=== PATIENT | female | born 1985 | race Caucasian/White ===

== ENCOUNTER 2016-10-21 14:48 | Outpatient (CLI) | payer BC ==
[~2016-10-21] VITALS: Ht 177.8 cm; Wt 123.8 kg
[2016-10-21 15:05] VITALS: BP 148/81
[2016-10-21] MEDS ORDERED: PREN1TAB86 PO (15:27)
[2016-10-21] MEDS ORDERED: CALC-140 PO (15:27)
[2016-10-21] MEDS ORDERED: LABE200T3 PO (15:27)
[2016-10-21] MEDS ORDERED: GLYB2.5T4 PO (15:27)
[2016-10-21 15:30] VITALS: BP 133/74
[2016-10-21 15:30] LABS: BILIRUBIN,URINE NEGATIVE (NEGATIVE); KETONES,URINE NEGATIVE (NEGATIVE); LEUKOCYTE ESTERASE ,URINE NEGATIVE (NEGATIVE); NITRITE,URINE NEGATIVE (NEGATIVE); PH,URINE 6 (5-9); PROTEIN,URINE NEGATIVE (NEGATIVE); UROBILINOGEN,URINE NORMAL (NORMAL)
[2016-10-21 15:45] VITALS: BP 133/74
[2016-10-21 16:00] LABS: BASOPHILS % (AUTO) 0 % (0-10); EOSINOPHILS # (AUTO) 0.1 10^3/uL (0.0-0.3); EOSINOPHILS % (AUTO) 1 % (0-10); LYMPHOCYTES # (AUTO) 1.4 X 10^3 (1.0-4.0); LYMPHOCYTES % (AUTO) 13 % (12-44); MEAN CORPUSCULAR HEMOGLOBIN 27 PG (25-34); MEAN CORPUSCULAR HGB CONC 33 G/DL (32-36); MEAN CORPUSCULAR VOLUME 82 FL (80-99); MEAN PLATELET VOLUME 9.8 FL (7.4-10.4); MONOCYTES # (AUTO) 0.8 X 10^3 (0.0-1.0); MONOCYTES % (AUTO) 8 % (0-12); NEUTROPHILS # (AUTO) 8.2 X 10^3 (1.8-7.8); NEUTROPHILS % (AUTO) 78 % (42-75); PLATELET COUNT 269 10^3/uL (130-400); RED BLOOD COUNT 4.35 10^6/uL (4.35-5.85); RED CELL DISTRIBUTION WIDTH 13.3 % (10.0-14.5); WHITE BLOOD COUNT 10.4 10^3/uL (4.3-11.0)
[2016-10-21 16:05] VITALS: BP 132/69
[2016-10-21 16:17] LABS: ALANINE AMINOTRANSFERASE 14 U/L (0-55); ALBUMIN 3.4 G/DL (3.2-4.5); ANION GAP 8 MMOL/L (5-14); ASPARTATE AMINO TRANSFERASE 14 U/L (5-34); BILIRUBIN,TOTAL 0.3 MG/DL (0.1-1.0); BLOOD UREA NITROGEN 6 MG/DL (7-18); BUN/CREATININE RATIO 11; CALCIUM 8.8 MG/DL (8.5-10.1); CARBON DIOXIDE 22 MMOL/L (21-32); CHLORIDE 107 MMOL/L (98-107); CREATININE SERUM 0.56 MG/DL (0.60-1.30); GFR ESTIMATED > 60; GLUCOSE 101 MG/DL (70-105); LACTATE DEHYDROGENASE 182 U/L (125-220); POTASSIUM 3.8 MMOL/L (3.6-5.0); SODIUM 137 MMOL/L (135-145); TOTAL PROTEIN 6.1 G/DL (6.4-8.2); URIC ACID 3.6 MG/DL (2.6-7.2)
[2016-10-21 16:29] LABS: SQUAMOUS EPITHELIAL CELL,UR 25-50 /HPF; WBC,URINE 0-2 /HPF
--- NOTE | 2016-10-22 10:15 | Physician Query-Final Dx ---
PETTY GUILLERMO 10/22/16 1015: Clinic Account Progress/Dx Physician Query: Please give diagnosis Date of Service Oct 21, 2016 at 14:48 MILAGROS MUELLER DO 10/25/16 0931: Clinic Account Progress/Dx DIAGNOSIS: Diagnosis abnormal vision third trimester chronic hypertension PETTY GUILLERMO Oct 22, 2016 10:15 MILAGROS MUELLER DO Oct 25, 2016 09:31
[2016-12-02] MEDS ORDERED: FERR-74 PO (17:21)
[2016-12-02] MEDS ORDERED: ACET1TAB43 PO (17:21)
[2016-12-02] MEDS ORDERED: DOCU100C37 PO (17:21)
[2016-12-02] MEDS ORDERED: IBUP-1773 PO (17:21)
== END 2016-10-21 16:45 | disposition home or self-care (01) ==
LOC: WSo 14:48 → LDRP 14:49 → WSo 16:45
PROVIDERS: ATTEND Obstetrics & Gynecology
DX: O99.89 Other specified diseases and conditions complicating pregnancy, childbirth and the puerperium (principal); H53.9 Unspecified visual disturbance; O10.913 Unspecified pre-existing hypertension complicating pregnancy, third trimester; Z3A.32 32 weeks gestation of pregnancy
CPT/HCPCS: 36415; 80053; 81000; 83615; 84550; 85025; 87088; 99213

== ENCOUNTER 2016-11-30 20:00 | Inpatient (IN) | payer BC ==
[~2016-11-30] VITALS: Ht 177.8 cm; Wt 124.3 kg
[2016-11-30] VITALS (13 sets, daily range): BP systolic 122–137; BP diastolic 63–80
[~2016-11-30 20:00] MED LIST: CALC-140 PO; GLYB2.5T4 PO; LABE200T3 PO; PREN1TAB86 PO
--- OUTSIDE RECORDS SUMMARY | 2016-11-30 20:09 | XMS REPORT | Continuity of Care Document ---
Author Author [facility] Organization [facility] Address Unknown Phone Unavailable Allergies Active Description Code Type Severity Reaction Onset Reported/Identified Relationship to Patient Clinical Status Yes No Known Drug Allergies [id number] Drug Allergy Unknown N/ A 10/21/2016 Medications Problems Date Dx Coded Attending Type Code Diagnosis Diagnosed By 10/03/2015 JERO DEMPSEY APRN Ot I10 10/21/2016 MUELLER DO MILAGROS C Ot H53.9 UNSPECIFIED VISUAL DISTURBANCE 10/21/2016 MUELLER DO, MILAGROS C Ot O10.913 UNSP PRE-EXISTING HTN COMP , 10/21/2016 MUELLER DO MILAGROS C Ot O99.89 OTH DISEASES AND CONDITIONS COMPL PREG/C 10/21/2016 MUELLER DO, MILAGROS C Ot Z3A.32 32 WEEKS GESTATION OF 10/27/2016 MUELLER DO MILAGROS C Ot H53.9 UNSPECIFIED VISUAL DISTURBANCE 10/27/2016 MUELLER DO, MILAGROS C Ot O10.913 UNSP PRE-EXISTING HTN COMP , 10/27/2016 MUELLER DO, MILAGROS C Ot O99.89 OTH DISEASES AND CONDITIONS COMPL PREG/C 10/27/2016 MUELLER DO, MILAGROS C Ot Z3A.32 32 WEEKS GESTATION OF Procedures Results Test Result Range Complete urinalysis with reflex to culture - 10/21/16 15:20 Urine color determination YELLOW NRG Urine clarity determination CLEAR NRG Urine pH measurement by test strip 6 5- 9 Specific gravity of urine by test strip 1.015 1.016-1.022 Urine protein assay by test strip, semi-quantitative NEGATIVE NEGATIVE Urine glucose detection by automated test strip NEGATIVE NEGATIVE Erythrocytes detection in urine sediment by light microscopy NEGATIVE NEGATIVE Urine ketones detection by automated test strip NEGATIVE NEGATIVE Urine nitrite detection by test strip NEGATIVE NEGATIVE Urine total bilirubin detection by test strip NEGATIVE NEGATIVE Urine urobilinogen measurement by automated test strip (mass/volume) NORMAL NORMAL Urine leukocyte esterase detection by dipstick NEGATIVE NEGATIVE Automated urine sediment erythrocyte count by microscopy (number/high power field) NONE NRG Automated urine sediment leukocyte count by microscopy (number/high power field ) [HPF] NRG Bacteria detection in urine sediment by light microscopy MODERATE NRG Squamous epithelial cells detection in urine sediment by light microscopy 25-50 NRG Crystals detection in urine sediment by light microscopy NONE NRG Casts detection in urine sediment by light microscopy NONE NRG Mucus detection in urine sediment by light microscopy NEGATIVE NRG Complete urinalysis with reflex to culture NO NRG Bacterial urine culture - 10/21/16 15:20 URINE CULTURE RESULTS <10,000/ML NRG Complete blood count (CBC) with automated white blood cell (WBC) differential - 10/21/16 15:51 Blood leukocytes automated count (number/volume) 10.4 10*3/ uL 4.3-11.0 Blood erythrocytes automated count (number/volume) 4.35 10*6 /uL 4.35-5.85 Venous blood hemoglobin measurement (mass/volume) 11.8 g/dL 11.5-16.0 Blood hematocrit (volume fraction) 36 % 35-52 Automated erythrocyte mean corpuscular volume 82 [foz_us] 80-99 Automated erythrocyte mean corpuscular hemoglobin (mass per erythrocyte) 27 pg 25-34 Automated erythrocyte mean corpuscular hemoglobin concentration measurement ( mass/volume) 33 g/dL 32-36 Automated erythrocyte distribution width ratio 13.3 % 10.0-14.5 Automated blood platelet count (count/volume) 269 10*3/uL 130-400 Automated blood platelet mean volume measurement 9.8 [foz_us ] 7.4-10.4 Automated blood neutrophils/100 leukocytes 78 % 42-75 Automated blood lymphocytes/100 leukocytes 13 % 12-44 Blood monocytes/100 leukocytes 8 % 0-12 Automated blood eosinophils/100 leukocytes 1 % 0-10 Automated blood basophils/100 leukocytes 0 % 0-10 Blood neutrophils automated count (number/volume) 8.2 10*3 1.8-7.8 Blood lymphocytes automated count (number/volume) 1.4 10*3 1.0-4.0 Blood monocytes automated count (number/volume) 0.8 10*3 0.0-1.0 Automated eosinophil count 0.1 10*3/uL 0.0-0.3 Automated blood basophil count (count/volume) 0.0 10*3/uL 0.0-0.1 Comprehensive metabolic panel - 10/21/16 15:51 Serum or plasma sodium measurement (moles/volume) 137 mmol/ L 135-145 Serum or plasma potassium measurement (moles/volume) 3.8 mmol/L 3.6-5.0 Serum or plasma chloride measurement (moles/volume) 107 mmol /L 98-107 Carbon dioxide 22 mmol/L 21-32 Serum or plasma anion gap determination (moles/volume) 8 mmol/L 5-14 Serum or plasma urea nitrogen measurement (mass/volume) 6 mg /dL 7-18 Serum or plasma creatinine measurement (mass/volume) 0.56 mg /dL 0.60-1.30 Serum or plasma urea nitrogen/creatinine mass ratio 11 NRG Serum or plasma creatinine measurement with calculation of estimated glomerular filtration rate > NRG Serum or plasma glucose measurement (mass/volume) 101 mg/dL 70-105 Serum or plasma calcium measurement (mass/volume) 8.8 mg/dL 8.5-10.1 Serum or plasma total bilirubin measurement (mass/volume) 0.3 mg/dL 0.1-1.0 Serum or plasma alkaline phosphatase measurement (enzymatic activity/volume) 103 U/L 40-136 Serum or plasma aspartate aminotransferase measurement (enzymatic activity/ volume) 14 U/L 5-34 Serum or plasma alanine aminotransferase measurement (enzymatic activity/volume ) 14 U/L 0-55 Serum or plasma protein measurement (mass/volume) 6.1 g/dL 6.4-8.2 Serum or plasma albumin measurement (mass/volume) 3.4 g/dL 3.2-4.5 Serum or plasma uric acid measurement (mass/volume) - 10/21/16 15:51 Serum or plasma uric acid measurement (mass/volume) 3.6 mg/ dL 2.6-7.2 Lactate dehydrogenase 1 [enzymatic activity/volume] in serum or plasma - 15:51 Lactate dehydrogenase 1 [enzymatic activity/volume] in serum or plasma 182 U/L 125-220 Encounters ACCT No. Visit Date/Time Discharge Status Pt. Type Provider Facility Loc./Unit Complaint [id number] 10/21/2016 14:48:00 2016 16:45:00 DIS Outpatient MILAGROS MUELLER DO [facility]So BLURRY VISION [id number] 09/18/2015 11:01:00 ACT Outpatient JERO DEMPSEY APRN [facility] CARD
[2016-11-30] MEDS ORDERED: LACTATED RINGERS 1,000 ML IV ONE (21:00)
[2016-11-30] MEDS ORDERED: diphenhydrAMINE 50 MG/ML INJ (BENADRYL) IV PRN (21:00)
[2016-11-30] MEDS ORDERED: MINERAL OIL CONCENTRATE 99.9% 15 ML UDC TOP PRN (21:15)
[2016-11-30] MEDS: MISOPROSTOL 100 MCG (CYTOTEC) TAB PV SCH (21:22)
[2016-11-30 21:25] LABS: BASOPHILS % (AUTO) 0 % (0-10); EOSINOPHILS # (AUTO) 0.1 10^3/uL (0.0-0.3); EOSINOPHILS % (AUTO) 1 % (0-10); LYMPHOCYTES # (AUTO) 1.4 X 10^3 (1.0-4.0); LYMPHOCYTES % (AUTO) 13 % (12-44); MEAN CORPUSCULAR HEMOGLOBIN 27 PG (25-34); MEAN CORPUSCULAR HGB CONC 33 G/DL (32-36); MEAN CORPUSCULAR VOLUME 80 FL (80-99); MEAN PLATELET VOLUME 10.4 FL (7.4-10.4); MONOCYTES # (AUTO) 1.2 X 10^3 (0.0-1.0); MONOCYTES % (AUTO) 11 % (0-12); NEUTROPHILS # (AUTO) 8.1 X 10^3 (1.8-7.8); NEUTROPHILS % (AUTO) 75 % (42-75); PLATELET COUNT 275 10^3/uL (130-400); RED BLOOD COUNT 4.26 10^6/uL (4.35-5.85); RED CELL DISTRIBUTION WIDTH 14.5 % (10.0-14.5); WHITE BLOOD COUNT 10.8 10^3/uL (4.3-11.0)
[2016-11-30] MEDS ORDERED: MAGN400T39 PO (21:34)
[2016-11-30] MEDS: CATHETER FLUSH 10 ML SYR IV SCH (22:00)
[2016-11-30 23:05] LABS: BILIRUBIN,URINE NEGATIVE (NEGATIVE); KETONES,URINE NEGATIVE (NEGATIVE); LEUKOCYTE ESTERASE ,URINE NEGATIVE (NEGATIVE); NITRITE,URINE NEGATIVE (NEGATIVE); PH,URINE 6 (5-9); PROTEIN,URINE NEGATIVE (NEGATIVE); UROBILINOGEN,URINE NORMAL (NORMAL)
[2016-11-30 23:28] LABS: WBC,URINE 0-2 /HPF
[2016-12-01] VITALS (85 sets, daily range): BP systolic 90–178; BP diastolic 50–95
[2016-12-01] MEDS: MISOPROSTOL 100 MCG (CYTOTEC) TAB PV SCH ×2 (01:07→05:11)
[2016-12-01] MEDS: CATHETER FLUSH 10 ML SYR IV SCH (05:44)
[2016-12-01] MEDS ORDERED: OXYTOCIN/NORMAL SALINE 500 ML IV SCH ×2 (08:53→22:07)
--- NOTE | 2016-12-01 10:23 | History & Physical-OB ---
OB - Chief Complaint & HPI Date Date of Admission: Date of Admission: Nov 30, 2016 at 20:05 Chief Complaint/History OB-Reason for Admission/Chief: Induction of Labor Hx : 1 Hx Para: 0 Expected Date of Delivery: Dec 14, 2016 Gestational Age in Weeks: 38 Indication for induction: medical complication Other reason for admission: 31 y/o G1 @ 38w1d by L=7 here for IOL c/b: CHTN - on labetalol 100mg with breakfast, 100 mg with lunch, 200 mg QHS Obesity - BMI 39, normal early GDM screening, abnormal 24-28 wk testing with GDMA2 on glyburide 2.5mg QHS H/o LEEP, normal early CLM Anxiety Fetus active, no LOF VB CTX on admission Diarrhea has ceased, still taking magnesium for headaches. Cdiff negative. EFW last week 3600g Admission Nurse Assessment Rev: Yes History of Labs A+ Antibody neg RI Hep B neg HIV neg RPR NR GC/CT neg/neg GBS Neg Allergies and Home Medications Allergies Coded Allergies: No Known Drug Allergies (Unverified , 11/30/16) Home Medications Calcium Carbonate/Vitamin D3 1 Each Tablet 1 TAB PO DAILY (Reported) Glyburide 2.5 Mg Tablet 2.5 MG PO HS (Reported) Labetalol HCl 200 Mg Tablet 200 MG PO ACHS (Reported) 100mg in AM 100mg in the Afternoon 200mg HS Magnesium Oxide 400 Mg Tablet 400 MG PO BID (Reported) Vit W-Ca,Fe,FA(<1 mg) 1 Each Tablet 1 TAB PO DAILY (Reported) OB - History Hx of Present Care: Yes Ultrasounds: Abnormal US findings (LGA (3600g at 37 wga)) Obstetrical Complications: Gestational Diabetes Medical Complications: Other Information Induced Hypertension: No Maternal Gestational Diabetes: Yes Hemorrhage: No Obstetrical History Hx : 1 Hx Para: 0 Delivery History Adverse Rxn to Tranfusion: No Patient Past Medical History see above Social History/Family History HIV/AIDS: No Recent Infectious Disease Expo: No Sexually Transmitted Disease: Yes (HPV) Alcohol Use: Denies Use Recreational Drug Use: No Immunizations Tetanus Booster (TDap): Less than 5yrs (09/24/16) Date of Influenza Vaccine: Jul 11, 2016 OB - Admission Exam Physical Exam Vitals: Vital Signs 12/01/16 12/01/16 12/01/16 01:00 06:30 07:00 Temp 97.9 Pulse 71 Resp 18 B/P 137/80 O2 Delivery Room Air HEENT: NCAT Heart: Rhythm Normal Abdomen: Gravid Cervical Dilatation: 1cm Effacement: 50% Station: -3 Membranes: Intact Heart Rate: 130's Accelerations: Accelerations Present Decelerations: No Decelerations Short Term Variability: Present Assisted Variability: Average (6-25) Contractions on Admission: 6-10 Minutes Apart Daley Scoring Tool (Modified) Dilation (cm): 1-2cm (1) Effacement (%): 51-79% (2) Descent/Station: -3 (0) Cervix Consistency: Soft (2) Cervix Position: Anterior (2) Subtract 1 point for: Nulliparity (-1) Daley Score: 6 Labs Laboratory Tests Test 11/30/16 20:25 11/30/16 20:30 11/30/16 21:10 12/01/16 01:04 Range/Units Basophils # (Auto) 0.0 0.0-0.1 10^3/uL Basophils (%) (Auto) 0 0-10 % Eosinophils # (Auto) 0.1 0.0-0.3 10^3/uL Eosinophils (%) (Auto) 1 0-10 % Hematocrit 34 L 35-52 % Hemoglobin 11.4 L 11.5-16.0 G/DL Lymphocytes # (Auto) 1.4 1.0-4.0 X 10^3 Lymphocytes (%) (Auto) 13 12-44 % Mean Corpuscular Hemoglobin 27 25-34 PG Mean Corpuscular Hemoglobin Concent 33 32-36 G/DL Mean Corpuscular Volume 80 80-99 FL Mean Platelet Volume 10.4 7.4-10.4 FL Monocytes # (Auto) 1.2 H 0.0-1.0 X 10^3 Monocytes (%) (Auto) 11 0-12 % Neutrophils # (Auto) 8.1 H 1.8-7.8 X 10^3 Neutrophils (%) (Auto) 75 42-75 % Platelet Count 275 130-400 10^3/uL Red Blood Count 4.26 L 4.35-5.85 10^6/uL Red Cell Distribution Width 14.5 10.0-14.5 % White Blood Count 10.8 4.3-11.0 10^3/uL Urine Bacteria TRACE /HPF Urine Bilirubin NEGATIVE NEGATIVE Urine Casts NONE /LPF Urine Clarity SLIGHTLY CLOUDY Urine Color YELLOW Urine Crystals NONE /LPF Urine Culture Indicated NO Urine Glucose (UA) NEGATIVE NEGATIVE Urine Ketones NEGATIVE NEGATIVE Urine Leukocyte Esterase NEGATIVE NEGATIVE Urine Mucus SMALL H /LPF Urine Nitrite NEGATIVE NEGATIVE Urine Protein NEGATIVE NEGATIVE Urine RBC 2-5 H /HPF Urine RBC (Auto) 4+ H NEGATIVE Urine Specific [place] 1.015 L 1.016-1.022 Urine Squamous Epithelial Cells 10-25 H /HPF Urine Urobilinogen NORMAL NORMAL MG/DL Urine WBC 0-2 /HPF Urine pH 6 5-9 Glucometer 81 81 70-110 MG/DL Test 12/01/16 05:20 12/01/16 09:05 Range/Units Glucometer 84 82 70-110 MG/DL OB - Assessment/Plan/Diagnosis Assessment Assessment: induction of labor Plan Other Plan 31 y/o G1 @ 38w1d with IOL for cHTN on labetalol GDMA2 Obesity LGA fetus, last EFW 3600g at 37wga H/o LEEP GBS neg Rh+ RI S/p cytotec x 3 doses. Cook balloon placed at 0800 80/80cc. Due for removal at 1999. Start pitocin at 0900. Total fluids 100cc/hr. Diab CLD, check FSBS q 4 hours in latent, q 2 hours in active labor. CEFM/TOCO ASVD VAHID Houston MD Dec 01, 2016 10:23
[2016-12-01] MEDS ORDERED: SUFENTA 0.6MCG/ML BUPIVA 0.125 0 ML ONE ×2 (11:12→13:44)
[2016-12-01] MEDS ORDERED: fentaNYL INJECTION 100 MCG/2 ML AMP ONE (13:54)
[2016-12-01] MEDS ORDERED: BUPIVACAINE 0.25% 30 ML (SENSORCAINE) VIAL ONE (13:55)
[2016-12-01] MEDS ORDERED: LIDOCAINE PF 2% 10 ML (XYLOCAINE) AMP ONE (13:55)
[2016-12-01] MEDS ORDERED: LACTATED RINGERS 1,000 ML IV ONE ×4 (14:20→17:39)
[2016-12-01] MEDS ORDERED: PHENYLEPHRINE 100 MCG/ML 10 ML (ANESTHESIA) SYR ONE (14:58)
[2016-12-01] MEDS ORDERED: BUPIVACAINE 0.25% 30 ML (SENSORCAINE) VIAL INJ ONE ×2 (15:00)
[2016-12-01] MEDS ORDERED: fentaNYL INJECTION 100 MCG/2 ML AMP INJ ONE (15:00)
[2016-12-01] MEDS ORDERED: LIDOCAINE PF 2% 10 ML (XYLOCAINE) AMP INJ ONE (15:00)
[2016-12-01] MEDS ORDERED: EPIDURAL (SUFENTA 0.6MCG/ML BUPIVA 0.125%) 100 ML BAG EPI PRN (15:00)
[2016-12-01] MEDS ORDERED: ONDANSETRON 4 MG/2 ML (SDV) Z0FRAN IV PRN (15:00)
[2016-12-01] MEDS ORDERED: NALOXONE 0.4 MG/ML 1 ML (NARCAN) VIAL IV PRN (15:00)
--- NOTE | 2016-12-01 15:04 | Progress Note-Standard ---
Standard Progress Note Progress Notes/Assess & Plan Date Seen 12/01/16 Assess & Plan/Chief Complaint HD#2 Late Entry 1300 Pt breathing through ctx does not want epidural yet Cook balloon out Vital Sign - Last 12Hours 12/01/16 12/01/16 12/01/16 12/01/16 03:30 04:00 04:30 05:30 Pulse 73 71 74 68 Resp 18 18 18 18 B/P 128/80 128/73 139/77 142/83 O2 Delivery Room Air Room Air Room Air Room Air 12/01/16 12/01/16 12/01/16 06:00 06:30 07:00 Pulse 71 Resp 18 18 B/P 137/80 O2 Delivery Room Air Room Air Room Air Intake and Output 12/01/16 00:00 Intake Total 500 ml Balance 500 ml Gen Moderate distress with ctx SVE /-1, AROM with clear fluid FHT 135/mod marion/reactive TOCO 3/10 A/P: 31 y/o G1 @ 38w1d here for IOL for CHTN GDMA2 Obesity H/o LEEP Rh+ RI CEFM/TOCO S/p AROM, cook balloon removed, continue pitocin per protocol Epidural upon request Continue FSBS, well controlled thus far Total fluids 100 cc/hr ASVD Labs Laboratory Tests 11/30/16 20:25 VAHID CUBA MD Dec 01, 2016 15:04
--- NOTE | 2016-12-01 21:59 | OB Labor & Delivery Record ---
Vag Delivery Note Vag Delivery Note Date of Delivery: December 01, 2016 Preoperative Diagnosis: Sarah Germain is a 31 y/o G1 @ 38w1d with IOL for chronic hypertension GDMA2 on glyburide Postoperative Diagnosis: Same Surgeon: Vahid Castrejon MD Anesthesia: Epidural Delivery Type: Spontaneous vaginal delivery Findings: Viable female infant, apgars and weight pending at time of this note Lacerations: second degree laceration (repaired), small cervical laceration ( repaired) Intact placenta with 3 vessel cord. No nuchal cord, body cord or shoulder dystocia Estimated Blood Loss: 500 ml Complications: None Condition: Stable Description of Procedure: The patient is a 31 y/o G1 who presented at 38w0d for IOL for chronic hypertension. She was admitted and informed consent was obtained. Her labor course was remarkable for cytotec for cervical ripening and pitocin/cook balloon for induction. She did receive an epidural. AROM was performed with clear fluid. Blood sugars were assessed and normal throughout labor. She progressed to complete dilatation and began to push. She was then set up for delivery. The infant's head was delivered atraumatically in the occiput anterior position. The shoulders and remainder of the 's body were then delivered without difficulty. Upon delivery, the head was held below the level of the perineum and the mouth and nares were bulb suctioned. The infant was placed on her mother's chest. The cord was doubly clamped and cut after a pause of 30-60 seconds. An intact placenta with 3- vessel cord delivered via Luca and there was found to be minimal bleeding. Vigorous fundal massage was performed and the fundus was found to be firm. IV oxytocin was given. Examination of the vagina and perineum revealed a second degree perineal laceration repaired in the usual fashion with 3-0 vicryl suture. After this, brisk bleeding was noted from the cervix. The cervix was examined with ringed forceps and there was a defect noted to be bleeding at the 6 o'clock position. A single interrupted stitch was placed and hemostasis was noted following this. Following the repair, sponge, instrument and needle counts were correct. Mom and baby were both in stable condition in the labor suite. Vitals - Labs Vital Signs - I&O Vital Signs Date Time Temp Pulse Resp B/P Pulse Ox O2 Delivery O2 Flow Rate FiO2 12/01/16 19:35 86 18 141/71 Room Air 12/01/16 19:20 83 18 117/64 Room Air 12/01/16 19:05 80 20 127/68 Room Air 12/01/16 18:50 86 20 136/70 Room Air 12/01/16 18:40 98.4 12/01/16 18:20 82 20 130/82 Room Air 12/01/16 18:05 69 20 135/70 Room Air 12/01/16 17:51 98.7 66 20 117/59 Room Air 12/01/16 17:35 66 20 128/60 Room Air 12/01/16 17:20 65 20 130/72 Room Air 12/01/16 17:05 83 20 117/60 Room Air 12/01/16 16:50 81 20 121/68 Room Air 12/01/16 16:30 67 20 132/66 Room Air 12/01/16 16:15 58 20 141/68 Room Air 12/01/16 16:00 76 20 120/63 Room Air 12/01/16 15:45 77 20 146/66 Room Air 12/01/16 15:36 88 20 117/65 Room Air 12/01/16 15:32 98.2 72 20 138/61 Room Air 12/01/16 15:26 71 18 118/63 100 Room Air 12/01/16 15:22 72 18 116/66 100 Room Air 12/01/16 15:16 71 18 120/64 100 Room Air 12/01/16 15:12 71 18 107/55 100 Room Air 12/01/16 15:08 64 18 118/56 99 Room Air 12/01/16 15:02 58 18 106/54 99 Room Air 12/01/16 14:56 80 18 90/50 99 Room Air 12/01/16 14:50 77 18 108/57 99 Room Air 12/01/16 14:45 64 18 111/57 98 Room Air 12/01/16 14:40 58 22 108/58 99 Room Air 12/01/16 14:35 70 22 100/55 98 Room Air 12/01/16 14:33 62 22 98/68 98 Room Air 12/01/16 14:30 63 22 114/65 98 Room Air 12/01/16 14:27 69 20 101/51 Room Air 12/01/16 14:22 62 20 116/58 92 Room Air 12/01/16 14:17 76 20 149/77 Room Air 12/01/16 14:12 65 20 155/80 98 Room Air 12/01/16 14:05 70 20 151/77 100 Room Air 12/01/16 13:48 64 18 142/73 Room Air 12/01/16 13:30 56 18 141/69 Room Air 12/01/16 13:19 67 18 171/88 Room Air 12/01/16 13:02 96.8 66 18 167/89 Room Air 12/01/16 12:48 66 18 151/88 Room Air 12/01/16 12:35 77 18 147/95 Room Air 12/01/16 12:03 69 18 141/76 Room Air 12/01/16 11:48 71 18 151/92 Room Air 12/01/16 11:15 61 18 145/82 Room Air 12/01/16 11:04 64 18 156/90 Room Air 12/01/16 10:47 70 18 151/87 Room Air 12/01/16 10:32 75 18 145/89 Room Air 12/01/16 10:20 72 18 145/67 Room Air 12/01/16 10:03 73 18 145/82 Room Air 12/01/16 09:35 79 18 147/89 Room Air 12/01/16 09:05 72 18 146/85 Room Air 12/01/16 08:35 69 18 144/75 Room Air 12/01/16 08:05 89 18 160/75 Room Air 12/01/16 07:35 97.8 65 18 124/68 Room Air 12/01/16 07:05 64 18 148/84 Room Air 12/01/16 07:00 Room Air 12/01/16 06:30 71 18 137/80 Room Air 12/01/16 06:00 18 Room Air 12/01/16 05:30 68 18 142/83 Room Air 12/01/16 04:30 74 18 139/77 Room Air 12/01/16 04:00 71 18 128/73 Room Air 12/01/16 03:30 73 18 128/80 Room Air 12/01/16 03:00 77 18 137/77 Room Air 12/01/16 02:45 67 18 109/57 Room Air 12/01/16 02:30 71 18 108/59 Room Air 12/01/16 02:15 67 18 105/58 Room Air 12/01/16 02:00 61 18 112/56 Room Air 12/01/16 01:45 62 18 107/56 Room Air 12/01/16 01:30 60 18 130/77 Room Air 12/01/16 01:15 61 18 133/77 Room Air 12/01/16 01:00 97.9 66 18 108/59 Room Air 12/01/16 00:45 63 18 105/56 Room Air 12/01/16 00:30 63 18 109/55 Room Air 12/01/16 00:15 65 18 122/70 Room Air 12/01/16 00:00 79 18 131/72 Room Air 11/30/16 23:45 74 18 123/70 Room Air 11/30/16 23:30 82 18 122/71 Room Air 11/30/16 23:15 81 18 126/74 Room Air 11/30/16 23:00 80 18 123/71 Room Air 11/30/16 22:45 81 18 132/70 Room Air 11/30/16 22:30 75 18 128/72 Room Air 11/30/16 22:00 82 18 122/63 Room Air I & O 12/01/16 07:00 Intake Total 500 ml Balance 500 ml Labs Laboratory Tests 12/01/16 01:04: Glucometer 81 12/01/16 05:20: Glucometer 84 12/01/16 09:05: Glucometer 82 12/01/16 13:34: Glucometer 76 12/01/16 16:16: Glucometer 67L 12/01/16 18:23: Glucometer 67L VAHID CASTREJON MD Dec 01, 2016 21:58
[2016-12-01] MEDS ORDERED: MEASLES,MUMPS,RUBELLA 1 EA INJ SQ ONE (22:15)
[2016-12-01] MEDS ORDERED: BENZOCAINE/MENTHOL (DERMOPLAST) 56 ML CAN TP PRN (22:15)
[2016-12-01] MEDS ORDERED: WITCH HAZEL(TUCKS) 40 EA JAR TOP PRN (22:15)
[2016-12-01] MEDS ORDERED: APAP 300 MG/CODEINE 30 MG (TYLENOL #3) TAB PO PRN (22:15)
[2016-12-02 00:30] VITALS: BP 120/80
[2016-12-02] MEDS: IBUPROFEN 600 MG (MOTRIN) TAB PO SCH ×4 (00:33→19:02)
[2016-12-02 04:10] VITALS: BP 119/78
[2016-12-02] MEDS ORDERED: CATHETER FLUSH 10 ML SYR IV SCH (06:00)
[2016-12-02 06:48] LABS: BASOPHILS % (AUTO) 0 % (0-10); EOSINOPHILS # (AUTO) 0.1 10^3/uL (0.0-0.3); EOSINOPHILS % (AUTO) 0 % (0-10); LYMPHOCYTES # (AUTO) 1.3 X 10^3 (1.0-4.0); LYMPHOCYTES % (AUTO) 9 % (12-44); MEAN CORPUSCULAR HEMOGLOBIN 27 PG (25-34); MEAN CORPUSCULAR HGB CONC 33 G/DL (32-36); MEAN CORPUSCULAR VOLUME 81 FL (80-99); MEAN PLATELET VOLUME 10.2 FL (7.4-10.4); MONOCYTES # (AUTO) 1.5 X 10^3 (0.0-1.0); MONOCYTES % (AUTO) 11 % (0-12); NEUTROPHILS # (AUTO) 11.7 X 10^3 (1.8-7.8); NEUTROPHILS % (AUTO) 80 % (42-75); PLATELET COUNT 205 10^3/uL (130-400); RED BLOOD COUNT 3.75 10^6/uL (4.35-5.85); RED CELL DISTRIBUTION WIDTH 14.5 % (10.0-14.5); WHITE BLOOD COUNT 14.6 10^3/uL (4.3-11.0)
[2016-12-02] MEDS ORDERED: PRENATAL VITAMIN 1 EA TAB PO SCH (07:00)
--- NOTE | 2016-12-02 09:10 | Postpartum Progress Note ---
Note Note Day # 1 s/p Subjective: Patient is without complaints. Ambulating, voiding. Tolerating a regular diet without nausea or vomiting. Normal lochia. Pain is well controlled with oral pain medications. [] feeding. [] Objective: Laboratory Tests Test 12/01/16 13:34 12/01/16 16:16 12/01/16 18:23 12/02/16 06:25 Range/Units Glucometer 76 67 L 67 L 100 70-110 MG/DL Test 12/02/16 06:26 Range/Units Basophils # (Auto) 0.0 0.0-0.1 10^3/uL Basophils (%) (Auto) 0 0-10 % Eosinophils # (Auto) 0.1 0.0-0.3 10^3/uL Eosinophils (%) (Auto) 0 0-10 % Glucose Level 98 70-105 MG/DL Hematocrit 30 L 35-52 % Hemoglobin 10.0 L 11.5-16.0 G/DL Lymphocytes # (Auto) 1.3 1.0-4.0 X 10^3 Lymphocytes (%) (Auto) 9 L 12-44 % Mean Corpuscular Hemoglobin 27 25-34 PG Mean Corpuscular Hemoglobin Concent 33 32-36 G/DL Mean Corpuscular Volume 81 80-99 FL Mean Platelet Volume 10.2 7.4-10.4 FL Monocytes # (Auto) 1.5 H 0.0-1.0 X 10^3 Monocytes (%) (Auto) 11 0-12 % Neutrophils # (Auto) 11.7 H 1.8-7.8 X 10^3 Neutrophils (%) (Auto) 80 H 42-75 % Platelet Count 205 130-400 10^3/uL Red Blood Count 3.75 L 4.35-5.85 10^6/uL Red Cell Distribution Width 14.5 10.0-14.5 % White Blood Count 14.6 H 4.3-11.0 10^3/uL Physical Exam: General - Alert and oriented, no apparent distress Abdomen - Soft, appropriately tender to palpation, non-distended, fundus firm at umbilicus Extremities - no edema, negative Tita's bilaterally [] Assessment: 1. post- day # 1 , status post spontaneous vaginal delivery. Recovering well, hemodynamically stable 2. Gestational diabetes - fasting 100. Hold glyburide post 3. chronic hypertension -stable 4. Acute blood loss anemia - replace iron Plan: Routine care. Encourage breast feeding. Encourage ambulation. Ferrous sulfate supplementation. Plan for discharge tomorrow Vitals - Labs Vital Signs - I&O Vital Signs Date Time Temp Pulse Resp B/P Pulse Ox O2 Delivery O2 Flow Rate FiO2 12/02/16 04:10 96.9 82 18 119/78 Room Air 12/02/16 00:30 18 120/80 Room Air 12/01/16 23:10 93 18 133/64 Room Air 12/01/16 22:50 100 20 111/65 Room Air 12/01/16 22:10 90 20 112/68 Room Air 12/01/16 21:50 93 20 115/55 Room Air 12/01/16 21:35 86 20 121/58 Room Air 12/01/16 21:20 98.2 88 20 137/64 Room Air 12/01/16 21:05 111 20 144/65 Room Air 12/01/16 20:50 98 20 156/67 Room Air 12/01/16 20:35 102 20 129/95 Room Air 12/01/16 20:20 103 18 178/78 Room Air 12/01/16 20:05 97 18 136/76 Room Air 12/01/16 19:50 89 18 124/76 Room Air 12/01/16 19:35 86 18 141/71 Room Air 12/01/16 19:20 83 18 117/64 Room Air 12/01/16 19:05 80 20 127/68 Room Air 12/01/16 18:50 86 20 136/70 Room Air 12/01/16 18:40 98.4 12/01/16 18:20 82 20 130/82 Room Air 12/01/16 18:05 69 20 135/70 Room Air 12/01/16 17:51 98.7 66 20 117/59 Room Air 12/01/16 17:35 66 20 128/60 Room Air 12/01/16 17:20 65 20 130/72 Room Air 12/01/16 17:05 83 20 117/60 Room Air 12/01/16 16:50 81 20 121/68 Room Air 12/01/16 16:30 67 20 132/66 Room Air 12/01/16 16:15 58 20 141/68 Room Air 12/01/16 16:00 76 20 120/63 Room Air 12/01/16 15:45 77 20 146/66 Room Air 12/01/16 15:36 88 20 117/65 Room Air 12/01/16 15:32 98.2 72 20 138/61 Room Air 12/01/16 15:26 71 18 118/63 100 Room Air 12/01/16 15:22 72 18 116/66 100 Room Air 12/01/16 15:16 71 18 120/64 100 Room Air 12/01/16 15:12 71 18 107/55 100 Room Air 12/01/16 15:08 64 18 118/56 99 Room Air 12/01/16 15:02 58 18 106/54 99 Room Air 12/01/16 14:56 80 18 90/50 99 Room Air 12/01/16 14:50 77 18 108/57 99 Room Air 12/01/16 14:45 64 18 111/57 98 Room Air 12/01/16 14:40 58 22 108/58 99 Room Air 12/01/16 14:35 70 22 100/55 98 Room Air 12/01/16 14:33 62 22 98/68 98 Room Air 12/01/16 14:30 63 22 114/65 98 Room Air 12/01/16 14:27 69 20 101/51 Room Air 12/01/16 14:22 62 20 116/58 92 Room Air 12/01/16 14:17 76 20 149/77 Room Air 12/01/16 14:12 65 20 155/80 98 Room Air 12/01/16 14:05 70 20 151/77 100 Room Air 12/01/16 13:48 64 18 142/73 Room Air 12/01/16 13:30 56 18 141/69 Room Air 12/01/16 13:19 67 18 171/88 Room Air 12/01/16 13:02 96.8 66 18 167/89 Room Air 12/01/16 12:48 66 18 151/88 Room Air 12/01/16 12:35 77 18 147/95 Room Air 12/01/16 12:03 69 18 141/76 Room Air 12/01/16 11:48 71 18 151/92 Room Air 12/01/16 11:15 61 18 145/82 Room Air 12/01/16 11:04 64 18 156/90 Room Air 12/01/16 10:47 70 18 151/87 Room Air 12/01/16 10:32 75 18 145/89 Room Air 12/01/16 10:20 72 18 145/67 Room Air 12/01/16 10:03 73 18 145/82 Room Air 12/01/16 09:35 79 18 147/89 Room Air I & O 12/02/16 07:00 Intake Total 1000 ml Balance 1000 ml Labs Laboratory Tests 12/01/16 13:34: Glucometer 76 12/01/16 16:16: Glucometer 67L 12/01/16 18:23: Glucometer 67L 12/02/16 06:25: Glucometer 100 12/02/16 06:26: Basophils # (Auto) 0.0, Basophils (%) (Auto) 0, Eosinophils # (Auto) 0.1, Eosinophils (%) (Auto) 0, Glucose Level 98, Hematocrit 30L, Hemoglobin 10.0L, Lymphocytes # (Auto) 1.3, Lymphocytes (%) (Auto) 9L, Mean Corpuscular Hemoglobin 27, Mean Corpuscular Hemoglobin Concent 33, Mean Corpuscular Volume 81, Mean Platelet Volume 10.2, Monocytes # (Auto) 1.5H, Monocytes (%) (Auto) 11 , Neutrophils # (Auto) 11.7H, Neutrophils (%) (Auto) 80H, Platelet Count 205, Red Blood Count 3.75L, Red Cell Distribution Width 14.5, White Blood Count 14.6H MILAGROS MUELLER DO Dec 02, 2016 09:10
[2016-12-02 10:00] VITALS: BP 116/79
[2016-12-02] MEDS: FERROUS SULF 325 MG (IRON) TAB PO SCH (10:13)
[2016-12-02] MEDS: DOCUSATE SODIUM 100 MG (COLACE) CAP PO SCH ×2 (10:13→21:44)
[2016-12-02 13:15] VITALS: BP 123/77
--- NOTE | 2016-12-02 14:51 | Anesthesia-Regional Post-Op ---
Regional Patient Condition Mental Status: Alert, Oriented x3 Circulation: Same as Pre-Op Headache: Absent Sensation: Full Recovery Motor Block: Absent Post Op Complications Complications None Follow Up Care/Instructions Patient Instructions None needed. Anesthesia/Patient Condition Patient is doing well, no complaints, stable vital signs, no apparent adverse anesthesia problems. No complications reported per nursing. BELIA ELDER CRNA Dec 02, 2016 14:51
[2016-12-02] MEDS ORDERED: PATIENT MAY USE OWN MEDS, ALL MC SCH (16:45)
[2016-12-02 17:15] VITALS: BP 142/79
[2016-12-02] MEDS ORDERED: FERR-74 PO (17:21)
[2016-12-02] MEDS ORDERED: IBUP-1773 PO (17:21)
[2016-12-02] MEDS ORDERED: ACET1TAB43 PO (17:21)
[2016-12-02] MEDS ORDERED: DOCU100C37 PO (17:21)
--- NOTE | 2016-12-02 17:39 | Discharge Inst-Women's Service ---
Discharge Inst-Women's Serv Depart Medication/Instructions New, Converted or Re-Newed RX: RX on Chart Final Diagnosis Term intrauterine , gestational diabetes mellitus, chronic hypertension , spontaneous vaginal delivery Consults/Follow Up Additional Follow Up: Yes Orders/Referrals One week for BP check with Dr. Castrejon 6 weeks for visit with Dr. Castrejon Activity Activity: Activity as Tolerated Driving Instructions: You May Drive (unless taking narcotic pain medication) NO SMOKING: NO SMOKING Nothing Inside Vagina: No Douching, No [place], No Tampons Diet Discharge Diet: No Restrictions Symptoms to Report to : Bleeding Excessive, Pain Increased, Fever Over 101 Degrees F, Pain/Pressure in Chest, Vaginal Bleeding Increase, Dizziness/Fainting , Nausea/Vomiting, Shortness of Breath Signs or symptoms of pre-eclampsia including headache, vision changes, right upper quadrant pain, sudden increase in swelling, chest pain, shortness of breath For Any Problems or Questions: Contact Your Physician VAHID CASTREJON MD Dec 02, 2016 17:39
[2016-12-02 20:10] VITALS: BP 130/88
[2016-12-03] MEDS: IBUPROFEN 600 MG (MOTRIN) TAB PO SCH ×3 (00:33→12:24)
[2016-12-03 02:20] VITALS: BP 123/73
[2016-12-03] MEDS ORDERED: [UNRECOGNIZED DRUG - OTHER] PO SCH (07:00)
[2016-12-03] MEDS ORDERED: [UNRECOGNIZED DRUG - OTHER] PO SCH (07:00)
[2016-12-03] MEDS ORDERED: CALCIUM PO SCH (07:00)
--- NOTE | 2016-12-03 08:23 | Postpartum Progress Note ---
Note Note Day # 2 Subjective: Patient is without complaints. Ambulating, voiding. Tolerating a regular diet without nausea or vomiting. Normal lochia. Pain is well controlled with oral pain medications. Breast feeding. Does have a sore throat and congestion, no fevers, no purulent drainage. Objective: Vital Sign - Last 12Hours 12/03/16 02:20 Temp 96.5 Pulse 90 Resp 18 B/P 123/73 Pulse Ox 99 O2 Delivery Room Air Physical Exam: General - Alert and oriented, no apparent distress Abdomen - Soft, appropriately tender to palpation, non-distended, fundus firm at umbilicus Extremities - no edema, negative Tita's bilaterally PP Hgb 10 FSBS fasting PPD1 98 Assessment: 31 y/o post- day # 1, status post spontaneous vaginal delivery. Recovering well, hemodynamically stable Acute blood loss anemia Hgb 10 GDMA2 Chronic HTN Plan: Routine care. Encourage breast feeding. Encourage ambulation. Ferrous sulfate supplementation. Plan for discharge today, f/u with me in clinic in one week for BP check, pt to check BPs at home and if elevated, restart anti-hypertensive meds. Vitals - Labs Vital Signs - I&O Vital Signs Date Time Temp Pulse Resp B/P Pulse Ox O2 Delivery O2 Flow Rate FiO2 12/03/16 02:20 96.5 90 18 123/73 99 Room Air 12/02/16 20:10 97.6 96 20 130/88 98 Room Air 12/02/16 17:15 97.0 93 18 142/79 99 Room Air 12/02/16 13:15 97.0 93 18 123/77 97 Room Air 12/02/16 10:00 97.0 85 18 116/79 98 Room Air VAHID CUBA MD Dec 03, 2016 08:23
[2016-12-03] MEDS: DOCUSATE SODIUM 100 MG (COLACE) CAP PO SCH (08:29)
[2016-12-03] MEDS: FERROUS SULF 325 MG (IRON) TAB PO SCH (08:30)
[2016-12-03 09:10] VITALS: BP 125/84
[2016-12-03 14:35] VITALS: BP 129/82
[2016-12-03 14:55] VITALS: BP 129/82
--- NOTE | 2016-12-07 17:37 | Discharge Summary ---
Diagnosis/Chief Complaint Date of Admission Nov 30, 2016 at 20:05 Date of Discharge Dec 03, 2016 at 14:55 Discharge Date: Dec 03, 2016 Discharge Diagnosis Chronic hypertension, term intrauterine , gestational diabetes mellitus A2, vaginal delivery Reason Hospital Visit 31 y/o G1 @ 38w1d by L=7 here for IOL c/b: CHTN - on labetalol 100mg with breakfast, 100 mg with lunch, 200 mg QHS Obesity - BMI 39, normal early GDM screening, abnormal 24-28 wk testing with GDMA2 on glyburide 2.5mg QHS H/o LEEP, normal early CLM Anxiety Fetus active, no LOF VB CTX on admission Diarrhea has ceased, still taking magnesium for headaches. Cdiff negative. EFW last week 3600g Discharge Summary Discharge Physical Examination Allergies: Coded Allergies: No Known Drug Allergies (Unverified , 11/30/16) Vitals & I&Os Vital Signs Date Time Temp Pulse Resp B/P Pulse Ox O2 Delivery O2 Flow Rate FiO2 12/03/16 14:55 78 18 129/82 98 12/03/16 14:35 97.8 Room Air General Appearance: Alert, Oriented X3 Abdominal: Soft, No Tenderness, Other (firm fundus below umbilicus) Hospital Course 31 y/o G1 admitted at 38w0d for IOL for CHTN GDMA2 on glyburide - FSBS well controlled during labor (and fasting < 100) Underwent Routine course D/c home PPD#2 in stable condition Discharge Condition at discharge Stable Instructions to patient/family Please see electonic discharge instructions given to patient. Discharge Medications Reviewed and agree with Discharge Medication list on patient's Discharge Instruction sheet Clinical Quality Measures DVT/VTE Risk/Contraindication: Risk Factor Score Per Nursin RFS Level Per Nursing on Admit: 1=Low/No VTE PPX VAHID CUBA MD Dec 07, 2016 17:37
== END 2016-12-03 14:55 | disposition home or self-care (01) | DRG 774 ==
LOC: LDRP 20:05
PROVIDERS: ADMIT Obstetrics & Gynecology; ATTEND Obstetrics & Gynecology
PROC: 10E0XZZ Delivery of Products of Conception, External Approach (ICD-10-PCS; principal; 2016-12-01)
PROC: 0KQM0ZZ Repair Perineum Muscle, Open Approach (ICD-10-PCS; 2016-12-01)
DX: O10.03 Pre-existing essential hypertension complicating the puerperium (principal); O71.3 Obstetric laceration of cervix; O70.1 Second degree perineal laceration during delivery; O99.03 Anemia complicating the puerperium; D62 Acute posthemorrhagic anemia; O99.213 Obesity complicating pregnancy, third trimester; E66.9 Obesity, unspecified; Z68.39 Body mass index [BMI] 39.0-39.9, adult; O99.343 Other mental disorders complicating pregnancy, third trimester; F41.9 Anxiety disorder, unspecified; O24.419 Gestational diabetes mellitus in pregnancy, unspecified control; O36.63X0 Maternal care for excessive fetal growth, third trimester, not applicable or unspecified; Z3A.38 38 weeks gestation of pregnancy; Z37.0 Single live birth
CPT/HCPCS: 36415; 81000; 82947; 82962; 85025; 86850; 86900; 86901; 88307

== ENCOUNTER 2017-03-11 10:45 | Outpatient (RCR) | payer BC ==
[~2017-03-11 10:45] MED LIST changes: +ACET1TAB43 PO; +DOCU100C37 PO; +FERR-74 PO; +IBUP-1773 PO; +MAGN400T39 PO
== END 2017-03-30 13:33 | disposition home or self-care (01) ==
PROVIDERS: ATTEND Obstetrics & Gynecology
DX: M79.1 Myalgia (principal); N39.3 Stress incontinence (female) (male)

== ENCOUNTER → 2018-04-15 | Outpatient (CLI) | payer BC ==
[~2018-04-15] MED LIST changes: -FERR-74 PO; +FERR325T18 PO; -LABE200T3 PO; +LABE200T7 PO
[2018-04-15 19:16] LABS: ABSOLUTE RETIC # 61 10e9/L (24-90); BASOPHILS % (AUTO) 1 % (0-10); EOSINOPHILS # (AUTO) 0.1 10^3/uL (0.0-0.3); EOSINOPHILS % (AUTO) 3 % (0-10); HEMATOCRIT 36 % (35-52); LYMPHOCYTES # (AUTO) 1.5 X 10^3 (1.0-4.0); LYMPHOCYTES % (AUTO) 42 % (12-44); MEAN CORPUSCULAR HEMOGLOBIN 27 PG (25-34); MEAN CORPUSCULAR HGB CONC 33 G/DL (32-36); MEAN CORPUSCULAR VOLUME 81 FL (80-99); MEAN PLATELET VOLUME 8.9 FL (7.4-10.4); MONOCYTES # (AUTO) 0.3 X 10^3 (0.0-1.0); MONOCYTES % (AUTO) 9 % (0-12); NEUTROPHILS # (AUTO) 1.7 X 10^3 (1.8-7.8); NEUTROPHILS % (AUTO) 47 % (42-75); PLATELET COUNT 174 10^3/uL (130-400); RED BLOOD COUNT 4.51 10^6/uL (4.35-5.85); RED CELL DISTRIBUTION WIDTH 14.6 % (10.0-14.5); RETICULOCYTE % 1.36 % (0.50-2.40); WHITE BLOOD COUNT 3.6 10^3/uL (4.3-11.0)
[2018-04-15 19:50] LABS: ALANINE AMINOTRANSFERASE 57 U/L (0-55); ALBUMIN 4.2 GM/DL (3.2-4.5); ALKALINE PHOSPHATASE 92 U/L (40-136); BILIRUBIN,TOTAL 0.9 MG/DL (0.1-1.0); BUN/CREATININE RATIO 9; CALCIUM 9.3 MG/DL (8.5-10.1); CARBON DIOXIDE 23 MMOL/L (21-32); CHLORIDE 108 MMOL/L (98-107); CREATININE SERUM 0.76 MG/DL (0.60-1.30); GLUCOSE 119 MG/DL (70-105); POTASSIUM 3.7 MMOL/L (3.6-5.0); SODIUM 140 MMOL/L (135-145); TOTAL PROTEIN 6.3 GM/DL (6.4-8.2)
[2018-04-15 19:52] LABS: BAND NEUTROPHILS 2 %; BASOPHILS % (MANUAL) 1 %; EOSINOPHILS % (MANUAL) 3 %; LYMPHOCYTES % (MANUAL) 54 %; MONOCYTES % (MANUAL) 3 %; NEUTROPHILS % (MANUAL) 37 %
[2018-04-15 19:53] LABS: MICROCYTOSIS SLIGHT
[2018-04-15 19:56] LABS: GFR ESTIMATED > 60
[2018-04-17 09:09] LABS: HEPATITIS C ANTIBODY C Non-Reactive (Non-Reactive)
== END ==
LOC: LAB 18:46
PROVIDERS: ATTEND Internal Medicine
DX: D61.818 Other pancytopenia (principal); R74.8 Abnormal levels of other serum enzymes
CPT/HCPCS: 36415; 80053; 80074; 82977; 85007; 85027; 85045

== ENCOUNTER → 2018-08-23 | Outpatient (CLI) | payer BC ==
--- NOTE | 2018-08-23 11:06 | Diagnostic Imaging Report ---
PROCEDURE: US Non-ob pelvis comp/trans. TECHNIQUE: Multiple realtime grayscale images were obtained of the pelvis in various projections endovaginally. Transabdominal imaging was also performed. INDICATION: Abnormal uterine bleeding. FINDINGS: The uterus measures 6.2 x 3.9 x 2.4 cm. No myometrial mass is seen. Endometrium is thin. The IUD appears to be appropriately centered in the endometrial canal. Endometrium is approximately 1-2 mm. Right ovary measures 3.2 x 2.3 x 2.4 cm and the left ovary measures 3.4 x 2.0 x 1.9 cm. Both ovaries demonstrate blood flow. There are small follicles on both ovaries. There is a small cyst involving the left ovary approximately 16 mm in size. No free fluid is seen. IMPRESSION: 1. IUD appears to be appropriately centered in the endometrial canal. 2. Small left ovarian cyst. Dictated by: Dictated on workstation # [id number]
== END ==
LOC: RAD 09:50
PROVIDERS: ATTEND Obstetrics & Gynecology
DX: N83.202 Unspecified ovarian cyst, left side (principal); Z30.431 Encounter for routine checking of intrauterine contraceptive device
CPT/HCPCS: 76830; 76856

== ENCOUNTER 2019-12-01 19:52 | Outpatient (CLI) | payer BC | END 2019-12-02 07:00 | disposition home or self-care (01) | LOC: SLEEP 19:52 | PROVIDERS: ATTEND Nurse Practitioner | DX: G47.33 Obstructive sleep apnea (adult) (pediatric) (principal); G47.10 Hypersomnia, unspecified; R53.83 Other fatigue | CPT/HCPCS: 95810 ==

== ENCOUNTER → 2021-01-14 | Outpatient (CLI) | payer BC ==
[~2021-01-14] MED LIST changes: +GLBR2.5T PO; -GLYB2.5T4 PO
--- NOTE | 2021-01-14 15:14 | Diagnostic Imaging Report ---
HISTORY: Tailbone pain and sacral pain after sitting for long time. COMPARISON: None TECHNIQUE: Three views of the sacrum/coccyx. COMPARISON: None FINDINGS: No acute fracture or dislocation is seen in the sacrum/coccyx. Alignment is normal. The bilateral sacroiliac joints are patent. There is mild sclerosis in a triangular pattern at the iliac side of the right SI joint. An intrauterine device is noted. IMPRESSION: 1. No acute osseous abnormalities seen in the sacrum/coccyx. 2. Right osteitis condensans ilii. Dictated by: Dictated on workstation # [id number]
== END ==
LOC: RAD 08:28
PROVIDERS: ATTEND Internal Medicine
DX: M85.38 Osteitis condensans, other site (principal)
CPT/HCPCS: 72220

== ENCOUNTER → 2021-06-05 | Outpatient (CLI) | payer BC ==
--- NOTE | 2021-06-05 16:58 | Diagnostic Imaging Report ---
INDICATION: Cough COMPARISON: 01/22/2016. FINDINGS: Frontal and lateral views the chest demonstrate clear lungs bilaterally. The heart size is normal. There is no pneumothorax. Osseous structures are normal. IMPRESSION: No acute findings. Normal chest. Dictated by: Dictated on workstation # [id number]
== END ==
LOC: RAD 16:00
PROVIDERS: ATTEND Internal Medicine
DX: R05 Cough (principal)
CPT/HCPCS: 71046